=== PATIENT | female | born 1980 | race Caucasian/White ===

== ENCOUNTER 2020-04-12 00:45 | Emergency (ER) | payer OTHER, BC ==
[~2020-04-12] VITALS: Ht 157.5 cm; Wt 104.3 kg
[2020-04-12] MEDS ORDERED: TRAM50 PO (01:07)
[2020-04-12] MEDS ORDERED: RAYOS5 MG (01:07)
== END 2020-04-12 01:26 | disposition home or self-care (01) ==
LOC: ER 00:45
DX: M54.12 Radiculopathy, cervical region (principal); F17.210 Nicotine dependence, cigarettes, uncomplicated; Z79.52 Long term (current) use of systemic steroids
CPT/HCPCS: 96372; 99283-25; A9270; J1885

== ENCOUNTER 2020-04-14 23:12 | Emergency (ER) | payer OTHER, BC ==
[~2020-04-14] VITALS: Ht 162.6 cm; Wt 104.3 kg
[~2020-04-14 23:12] MED LIST: RAYOS5 MG; TRAM50 PO
== END 2020-04-14 23:43 | disposition home or self-care (01) ==
LOC: ER 23:12
DX: M79.644 Pain in right finger(s) (principal); Z79.52 Long term (current) use of systemic steroids; Z79.899 Other long term (current) drug therapy
CPT/HCPCS: 96372; 99283-25; J1885

== ENCOUNTER 2020-04-19 06:34 | Emergency (ER) | payer OTHER, BC ==
[~2020-04-19] VITALS: Ht 157.5 cm; Wt 104.3 kg
[2020-04-19] MEDS ORDERED: CYCL10 PO (06:59)
[2020-04-19] MEDS ORDERED: PRED1 PO (07:00)
== END 2020-04-19 08:15 | disposition home or self-care (01) ==
LOC: ER 06:34
DX: G89.29 Other chronic pain (principal); M54.2 Cervicalgia; M54.6 Pain in thoracic spine; F17.210 Nicotine dependence, cigarettes, uncomplicated; Z79.52 Long term (current) use of systemic steroids; Z79.899 Other long term (current) drug therapy
CPT/HCPCS: 96372; 99283-25; J1885

== ENCOUNTER 2020-07-07 15:00 | Emergency (ER) | payer OTHER, BC ==
[~2020-07-07] VITALS: Ht 160 cm; Wt 108.9 kg
[~2020-07-07 15:00] MED LIST changes: +CYCL10 PO; +PRED1 PO
[2020-07-07] MEDS ORDERED: Prednisone20 MG PO (17:03)
== END 2020-07-07 17:34 | disposition home or self-care (01) ==
LOC: ER 15:00
DX: M54.12 Radiculopathy, cervical region (principal); F17.210 Nicotine dependence, cigarettes, uncomplicated; Z79.52 Long term (current) use of systemic steroids; Z79.899 Other long term (current) drug therapy
CPT/HCPCS: 96372; 99283-25; J1885; J7512